=== PATIENT | male | born 1940 ===

== ENCOUNTER 2024-01-11 11:40 | Outpatient (CLI) | payer OTHER, SELFPAY ==
[2024-01-11 09:55] LABS: Abs Immature Grans 0.05 10^3/uL (0.0-0.06); Absolute Basophil Count 0.02 10^3/uL (0.0-0.2); Absolute Eosinophil Count 0.06 10^3/uL (0.0-0.7); Absolute Lymphocyte Count 1.15 10^3/uL (1.2-3.4); Absolute Monocyte Count 0.64 10^3/uL (0.1-0.8); Absolute Neutrophil Count 5.08 10^3/uL (1.2-6.7); Basophils % 0.3; Eosinophils % 0.9; HCT 37.8 % (40.0-50.0); Immature Grans % 0.7; Lymphocytes % 16.4; MCH 30.2 pg (27.0-33.0); MCHC 31.7 % (32.0-36.0); MCV 95 fL (80-95); MPV 9.6 fL (8.0-11.0); Monocytes % 9.1; Neutrophils % 72.6; Platelet Count 222 10^3/uL (130-400); RBC 3.98 10^6/uL (4.36-5.78); RDW 13.1 % (11.8-14.1); RDW-SD 45.6 fL
[2024-01-11 10:08] LABS: ALT 21 U/L (16-63); AST 11 U/L (15-37); Albumin 3.6 g/dL (3.4-5.0); Alkaline Phosphatase 106 U/L (46-116); Anion Gap 8.2 mmol/L (3-11); BUN 29 mg/dL (7-18); Bilirubin, Total 0.9 mg/dL (0.2-1.0); CO2 24.8 mmol/L (21.0-32.0); CREATININE 1.1 mg/dL (0.70-1.30); Calcium 9.4 mg/dL (8.5-10.1); Chloride 105 mmol/L (98-107); Estimated GFR 67.44 (mL/min/1.73m2); Glucose 115 mg/dL (74-106); Potassium 4.5 mmol/L (3.5-5.1); Sodium 138 mmol/L (136-145); Total Protein 7.1 g/dL (6.4-8.2)
[2024-01-12 10:32] LABS: IgA 95 mg/dL (85-499); IgG 831 mg/dL (610-1616); IgM 98 mg/dL (35-242); Kappa Free Light Chain 1.83 mg/dL (0.33-1.94); Lambda Free Light Chain 2.81 mg/dL (0.57-2.63)
[2024-01-12 13:41] LABS: Albumin 57.6 % (55.8-66.1); Albumin g/dL 3.8 g/dL (3.6-5.2); Comment (See Note); Monoclonal Spike 3.5 % (None Seen); Monoclonal Spike g/dL 0.2 g/dL (None Seen); Total Protein 6.6 g/dL (6.3-8.2)
[2024-01-17 15:28] LABS: Immunotyping, Serum (See Note)
== END 2024-01-11 11:41 | disposition home or self-care (01) ==
LOC: LBO 11:40
PROVIDERS: Visit Provider Internal Medicine Hematology & Oncology
DX: C90.00 Multiple myeloma not having achieved remission (principal)
CPT/HCPCS: 36415; 80053; 82784; 83883; 84165; 85025; 86320

== ENCOUNTER 2024-02-15 08:50 | Outpatient (CLI) | payer OTHER, SELFPAY ==
[2024-02-15 09:41] LABS: Abs Immature Grans 0.04 10^3/uL (0.0-0.06); Absolute Basophil Count 0.03 10^3/uL (0.0-0.2); Absolute Eosinophil Count 0.17 10^3/uL (0.0-0.7); Absolute Lymphocyte Count 0.89 10^3/uL (1.2-3.4); Absolute Monocyte Count 1.36 10^3/uL (0.1-0.8); Absolute Neutrophil Count 4.05 10^3/uL (1.2-6.7); Basophils % 0.5; Eosinophils % 2.6; HCT 34.9 % (40.0-50.0); Immature Grans % 0.6; Lymphocytes % 13.6; MCH 30.1 pg (27.0-33.0); MCHC 31.5 % (32.0-36.0); MCV 95 fL (80-95); MPV 11.3 fL (8.0-11.0); Monocytes % 20.8; Neutrophils % 61.9; Platelet Count 153 10^3/uL (130-400); RBC 3.66 10^6/uL (4.36-5.78); RDW-SD 45.9 fL; WBC 6.54 10^3/uL (4.4-10.8)
[2024-02-15 09:58] LABS: ALT 19 U/L (16-63); AST 12 U/L (15-37); Albumin 3.4 g/dL (3.4-5.0); Alkaline Phosphatase 86 U/L (46-116); Anion Gap 10.4 mmol/L (3-11); BUN 30 mg/dL (7-18); Bilirubin, Total 1.3 mg/dL (0.2-1.0); CO2 24.6 mmol/L (21.0-32.0); CREATININE 1.1 mg/dL (0.70-1.30); Calcium 8.9 mg/dL (8.5-10.1); Chloride 105 mmol/L (98-107); Estimated GFR 67.44 (mL/min/1.73m2); Glucose 103 mg/dL (74-106); Potassium 3.8 mmol/L (3.5-5.1); Sodium 140 mmol/L (136-145); Total Protein 6.9 g/dL (6.4-8.2)
[2024-02-16 14:24] LABS: Albumin 57.6 % (55.8-66.1); Albumin g/dL 3.6 g/dL (3.6-5.2); Comment (See Note); Monoclonal Spike 5.9 % (None Seen); Monoclonal Spike g/dL 0.4 g/dL (None Seen); Total Protein 6.3 g/dL (6.3-8.2)
[2024-02-16 15:04] LABS: IgA 70 mg/dL (85-499); IgG 911 mg/dL (610-1616); IgM 92 mg/dL (35-242); Lambda Free Light Chain 5.14 mg/dL (0.57-2.63)
== END 2024-02-15 08:51 | disposition home or self-care (01) ==
PROVIDERS: Visit Provider Internal Medicine Hematology & Oncology
DX: C90.00 Multiple myeloma not having achieved remission (principal)
CPT/HCPCS: 36415; 80053; 82784; 83883; 84165; 85025